=== PATIENT | female | born 1945 | race Caucasian/White ===

== ENCOUNTER 2018-02-09 11:23 | Emergency (ER) | payer OTHER ==
[2018-02-09 13:04] VITALS: BP 136/73
--- NOTE | 2018-02-09 13:19 | UC ---
Respiratory Complaint HPI - HPI Summary HPI Summary: The patient is a 72-year-old female with a one-week history of sinus pressure and pain nasal congestion sore throat and cough. He fever or chills. She denies any chest pain or shortness of breath. She has no nausea vomiting or diarrhea. - History of Current Complaint Chief Complaint: UCGeneralIllness Stated Complaint: SORE THROAT, EARS Time Seen by Provider: 02/09/18 13:06 Hx Obtained From: Patient Onset/Duration: Gradual Onset, Lasting Days - 7 Severity Initially: Mild Severity Currently: Moderate Pain Intensity: 4 Aggravating Factors: Nothing Associated Signs And Symptoms: Positive: Nasal Congestion - Allergies/Home Medications Allergies/Adverse Reactions: Allergies Allergy/AdvReac Type Severity Reaction Status Date / Time acetaminophen Allergy Hives Verified 02/09/18 12:53 [From Darvocet-N] lisinopril Allergy Swelling Verified 02/09/18 12:53 Of Face,Lips,& Throat morphine Allergy Shakes Verified 02/09/18 12:53 Penicillins Allergy Hives Verified 02/09/18 12:53 propoxyphene Allergy Hives Verified 02/09/18 12:53 [From Darvocet-N] Sulfa (Sulfonamide Allergy Hives Verified 02/09/18 12:53 Antibiotics) tramadol [From Ultram] Allergy Hives Verified 02/09/18 12:53 Home Medications: Home Medications Citalopram TAB* [CeleXA TAB*] 40 mg PO DAILY 02/09/18 [History Confirmed ] Loratadine [Claritin] 10 mg PO DAILY 02/09/18 [History Confirmed 02/09/18] Multivitamin [Multiple Vitamins] 1 tab PO DAILY 02/09/18 [History Confirmed ] Simvastatin 20 mg PO DAILY 02/09/18 [History Confirmed 02/09/18] amLODIPine TAB* [Norvasc 5 mg TAB*] 5 mg PO DAILY 02/09/18 [History Confirmed ] PMH/Surg Hx/FS Hx/Imm Hx Previously Healthy: Yes Endocrine History: Diabetes Cardiovascular History: Hypertension Respiratory History: Asthma - Surgical History Surgical History: Yes Surgery Procedure, Year, and Place: hysterectomy. gastric bypass. hernia repair. cholycysectomy. bilateral knee replacements. cataract with implants - Family History Known Family History: Positive: Hypertension - Social History Alcohol Use: None Substance Use Type: None Smoking Status (MU): Former Smoker Review of Systems All Other Systems Reviewed And Are Negative: Yes Constitutional: Positive: Negative Skin: Positive: Negative Eyes: Positive: Negative ENT: Positive: Sore Throat, Ear Ache, Nasal Discharge, Sinus Congestion Respiratory: Positive: Cough Cardiovascular: Positive: Negative Gastrointestinal: Positive: Negative Genitourinary: Positive: Negative Motor: Positive: Negative Neurovascular: Positive: Negative Musculoskeletal: Positive: Negative Neurological: Positive: Negative Psychological: Positive: Negative Physical Exam Triage Information Reviewed: Yes Appearance: Well-Appearing, No Pain Distress, Well-Nourished Vital Signs: Initial Vital Signs Temp 97.8 F 02/09/18 12:54 Pulse 55 02/09/18 12:54 Resp 18 02/09/18 12:54 BP 136/73 02/09/18 12:54 Pulse Ox 99 02/09/18 12:54 Vital Signs Reviewed: Yes Eyes: Positive: Conjunctiva Clear ENT: Positive: Hearing grossly normal, Sinus tenderness. Negative: Nasal congestion, Nasal drainage, Tonsillar swelling, Tonsillar exudate, Trismus, Muffled voice, Hoarse voice Neck: Positive: Supple, Nontender Respiratory: Positive: Lungs clear, Normal breath sounds, No respiratory distress, No accessory muscle use Cardiovascular: Positive: RRR, No Murmur Musculoskeletal: Positive: ROM Intact, No Edema Neurological: Positive: Alert Psychological Exam: Normal Skin Exam: Normal UC Diagnostic Evaluation - Laboratory O2 Sat by Pulse Oximetry: 99 - normal/not hypoxic Respiratory Course/Dx - Differential Dx/Diagnosis Provider Diagnosis: Sinusitis Discharge - Sign-Out/Discharge Documenting (check all that apply): Patient Departure All imaging exams completed and their final reports reviewed: No Studies - Discharge Plan Condition: Stable Disposition: HOME Prescriptions: Azithromycin TAB* [Zithromax TAB (Z-RYNE) 250 mg #6 tabs] 2 tab PO .TODAY, THEN 1 DAILY #1 ryne Patient Education Materials: Sinusitis (ED) Forms: *Work Release Referrals: Akiko Monterroso NP [Primary Care Provider] - 1 Week (if not better) Additional Instructions: recheck for new or worsening symptoms - Billing Disposition and Condition Condition: STABLE Disposition: Home
== END 2018-02-09 13:19 | disposition home or self-care (01) ==
LOC: UCCORT 11:23
DX: J32.9 Chronic sinusitis, unspecified (principal); Z88.6 Allergy status to analgesic agent; Z88.8 Allergy status to other drugs, medicaments and biological substances; Z88.5 Allergy status to narcotic agent; Z88.0 Allergy status to penicillin; Z88.2 Allergy status to sulfonamides; E11.9 Type 2 diabetes mellitus without complications; I10 Essential (primary) hypertension; F17.210 Nicotine dependence, cigarettes, uncomplicated
CPT/HCPCS: 99202; G0463

== ENCOUNTER 2018-05-11 10:48 | Emergency (ER) | payer OTHER ==
[2018-05-11 12:19] VITALS: BP 148/63
--- NOTE | 2018-05-11 12:40 | UC ---
Nausea/Vomiting/Diarrhea HPI - HPI Summary HPI Summary: 72-year-old woman comes in with chief complaint of diarrhea for one week. The diarrhea is brown and watery. Has not seen any blood in the diarrhea. She does have some intermittent cramping abdominal pain that is mild. She's taken Tylenol for the abdominal pain and that helped with the pain. Does not feel lightheaded. She has been able to eat and drink although she has decreased appetite. No fever. No nausea or vomiting. - History of Current Complaint Chief Complaint: UCGI Stated Complaint: NAUSEA Time Seen by Provider: 05/11/18 12:19 Pain Intensity: 6 - Allergies/Home Medications Allergies/Adverse Reactions: Allergies Allergy/AdvReac Type Severity Reaction Status Date / Time acetaminophen Allergy Hives Verified 05/11/18 12:02 [From Darvocet-N] lisinopril Allergy Swelling Verified 05/11/18 12:02 Of Face,Lips,& Throat morphine Allergy Shakes Verified 05/11/18 12:02 Penicillins Allergy Hives Verified 05/11/18 12:02 propoxyphene Allergy Hives Verified 05/11/18 12:02 [From Darvocet-N] Sulfa (Sulfonamide Allergy Hives Verified 05/11/18 12:02 Antibiotics) tramadol [From Ultram] Allergy Hives Verified 05/11/18 12:02 Home Medications: Home Medications Bismuth Subsalicylate [Pepto-Bismol Max Strength] 525 mg PO DAILY PRN 05/11/18 [ History Confirmed 05/11/18] Famotidine TAB* [Pepcid 20 MG TAB*] 20 mg PO BID 05/11/18 [History Confirmed ] Gabapentin CAP(*) [Neurontin 300 CAP(*)] 300 mg PO QPM 05/11/18 [History Confirmed 05/11/18] Sucralfate TAB* [Carafate*] 1 gm PO QID 05/11/18 [History Confirmed 05/11/18] PMH/Surg Hx/FS Hx/Imm Hx Previously Healthy: Yes Endocrine History: Dyslipidemia Cardiovascular History: Hypertension GI/ History: Gastroesophageal Reflux - Surgical History Surgical History: Yes Surgery Procedure, Year, and Place: hysterectomy 2002. gastric bypass. hernia repair. cholycystectomy. bilateral knee replacements. cataracts with implants - Family History Known Family History: Positive: Hypertension - Social History Alcohol Use: None Substance Use Type: None Smoking Status (MU): Former Smoker Review of Systems All Other Systems Reviewed And Are Negative: Yes Constitutional: Positive: Negative Skin: Positive: Negative Eyes: Positive: Negative ENT: Positive: Negative Respiratory: Positive: Negative Cardiovascular: Positive: Negative Gastrointestinal: Positive: Abdominal Pain, Nausea. Negative: Vomiting Genitourinary: Positive: Negative Motor: Positive: Negative Neurovascular: Positive: Negative Musculoskeletal: Positive: Negative Neurological: Positive: Negative Psychological: Positive: Negative Is Patient Immunocompromised?: No Physical Exam Triage Information Reviewed: Yes Appearance: Well-Appearing, No Pain Distress, Well-Nourished Vital Signs: Initial Vital Signs Temp 97.3 F 05/11/18 12:13 Pulse 53 05/11/18 12:13 Resp 14 05/11/18 12:13 BP 148/63 05/11/18 12:13 Pulse Ox 100 05/11/18 12:13 Vital Signs Reviewed: Yes Eye Exam: Normal Eyes: Positive: Conjunctiva Clear ENT: Positive: Pharyngeal erythema Neck exam: Normal Neck: Positive: Supple Respiratory: Positive: Lungs clear, Normal breath sounds, No respiratory distress Cardiovascular: Positive: RRR Abdomen Description: Positive: Nontender, Soft. Negative: Guarding Bowel Sounds: Positive: Hyperactive Musculoskeletal Exam: Normal Musculoskeletal: Positive: Strength Intact, ROM Intact Neurological Exam: Normal Neurological: Positive: Alert, Muscle Tone Normal Psychological Exam: Normal Skin Exam: Normal Naus/Vom/Diarrhea Course/Dx - Course Course Of Treatment: The plan is to get a stool sample and treat based on that. In the meantime continue symptomatic treatment and maintain hydration. I let the patient know to not take Imodium until we know better with one on with stool in with her not is to be treated. At the patient know if anything worse with fever pain she felt they'll blood in the stool she needs to go the emergency department right away. - Differential Dx/Diagnosis Provider Diagnosis: Diarrhea, Abdominal pain Condition At Discharge: Stable Discharge - Sign-Out/Discharge Documenting (check all that apply): Patient Departure All imaging exams completed and their final reports reviewed: No Studies - Discharge Plan Condition: Stable Disposition: HOME Patient Education Materials: Acute Diarrhea (ED), Abdominal Pain (ED) Forms: *Work Release Referrals: OSMAN Patten [Primary Care Provider] - Additional Instructions: FOLLOW UP WITH YOUR DOCTOR. GO TO THE EMERGENCY DEPARTMENT FOR ANY WORSENING OF YOUR CONDITION; PAIN, FEVER , BLOOD IN YOUR STOOL, YOU FEEL ILL, DEHYDRATION OR QUESTIONS OR CONCERNS. - Billing Disposition and Condition Condition: STABLE Disposition: Home
== END 2018-05-11 13:08 | disposition home or self-care (01) ==
LOC: UCCORT 10:48
DX: R19.7 Diarrhea, unspecified (principal); R10.9 Unspecified abdominal pain; R11.0 Nausea; I10 Essential (primary) hypertension; K21.9 Gastro-esophageal reflux disease without esophagitis; Z88.8 Allergy status to other drugs, medicaments and biological substances; Z88.5 Allergy status to narcotic agent; Z88.0 Allergy status to penicillin; Z88.2 Allergy status to sulfonamides; Z79.899 Other long term (current) drug therapy; Z87.891 Personal history of nicotine dependence
CPT/HCPCS: 99212; G0463